=== PATIENT | female | born 1990 | race Caucasian/White ===

== ENCOUNTER 2024-09-23 18:25 | Emergency (ER) | payer MEDICAID, SELFPAY ==
[2024-09-23 18:32] VITALS: BP 184/90; PULSE 91; RESP 18; TEMP 36.6; O2SAT 100; BMI 31.8
--- NOTE | 2024-09-23 18:32 | ED_ITS ---
Discharge Plan Disposition Patient Disposition: Home, Self-Care Condition: Good Prescriptions Prescriptions: New amoxicillin-pot clavulanate 875-125 mg tablet 1 tab PO BID Qty: 20 0RF nygusxgkommrtkx-oithsfrvm-[id number] [Bromfed DM] 2-30-10 mg/5 mL syrup 5 ml PO Q4H PRN (Reason: sinus symptoms) Qty: 118 0RF Referrals Follow up/Referrals: Janis Victor APRN [Nurse Practitioner] - See instructions Provider,Referral, [Primary Care Provider] - See instructions Activity Restrictions/Add. Instructions Additional Instructions/Restrictions: Please take your antibiotic till it is gone. Please call in the morning to make a follow-up appointment with ear nose and throat to follow the progression. Return to ER for any worsening signs or symptoms as needed. Clinical Impressions Clinical Impression: Acute pain of left ear Print Language Print Language: Slovenian Discharge ED Provider: Emiliano Gómez General Adult HPI <VANDA Lindsay - Last Filed: 09/23/24 20:15> General Chief complaint: Upper Respiratory Infection Stated complaint: left ear pain,headache Time Seen by Provider: 09/23/24 18:33 History of Present Illness HPI narrative: Patient states that she started with a sort of left-sided headache that was generalized but has localized now to her left ear. She denies any fever chills hemoptysis hematochezia melena nausea vomiting diarrhea sore throat. She does not report any loss of hearing. Patient presents for evaluation of left ear pain. Patient gives a 2-day history of increasing left ear pain. Related Data Previous Rx's ?Medication ?Instructions ?Recorded amoxicillin 875 mg-potassium 1 tab PO BID #20 tabs 09/23/24 clavulanate 125 mg tablet byeekiqtwcssmba-pcyipfkvklghbau-TV 5 ml PO Q4H PRN sinus symptoms 09/23/24 2 mg-30 mg-10 mg/5 mL oral syrup #118 mL (Bromfed DM) Allergies Allergy/AdvReac Type Severity Reaction Status Date / Time INGREDIENT: NO KNOWN - NO Allergy Unknown Uncoded 08/20/17 14:54 KNOWN DRUG ALLERGY PFSH <VANDA Lindsay - Last Filed: 09/23/24 20:15> [facility] Disclaimer: The information contained in this section may have been updated after the patient was seen, as this information can be updated by other users. Social History (Updated 09/23/24 @ 20:15 by VANDA Lindsay) Smoking Status: Current every day smoker alcohol intake: never current occupational status: employed Travel in the last 8 weeks: None Have you lived/traveled outside [place] in past 30 days?: No Contact w/someone who lives/traveled outside [place] past 30 days?: No Exposure to someone with infectious disease in past 14 days?: No Do you have a fever (greater than 100.4 F or 38 C)?: No Have you tested positive for COVID-19: No Exposed to someone with COVID-19 in past 14 days?: No Do you have a sore throat?: No Do you have a cough?: No Do you have any weakness?: No Do you have any diarrhea?: No Are you experiencing any unusual bleeding?: No Do you have any muscle aches/pain?: No Do you have any abdominal pain?: No Are you experiencing loss of taste or smell?: No <VANDA Lindsay - Last Filed: 09/23/24 20:15> ROS Obtained: Yes Systems reviewed as appropriate & no additional complaints except as documented Physical Exam <VANDA Lindsay - Last Filed: 09/23/24 20:15> General General appearance: alert Respiratory Respiratory exam: Present normal lung sounds bilaterally Cardiovascular Cardiovascular exam: Present regular rate Neurological Exam Neurological exam: Present alert and oriented X3 Medical Decision Making <VANDA Lindsay - Last Filed: 09/23/24 20:15> Medical Records Screening: Per USPSTF and CDC recommendations, given the prevalence of disease in our region, it is our hospital?s policy to screen for HIV and viral Hepatitis for all patients aged 18 and over and those with ongoing risk factors. Lalito Inquiry Pt receiving controlled substance: No Vital Signs: 09/23/24 18:32 09/23/24 20:12 Temperature 97.8 F 97.8 F Temperature Source Oral Oral Pulse Rate 95 H Pulse Rate [Radial] 91 H Respiratory Rate 18 18 Blood Pressure 171/82 H Blood Pressure [Right Arm] 184/90 H Blood Pressure Mean [Right Arm] 121 Blood Pressure Source Automatic Cuff Blood Pressure Source [Right Arm] Automatic Cuff Blood Pressure Position Sitting Blood Pressure Position [Right Arm] Sitting 02 Sat by Pulse Oximetry 100 Oxygen Delivery Method Room Air Room Air Lab Data Lab results reviewed: Yes I reviewed the patient's lab results. Lab Results 09/23/24 18:38: SARS-CoV-2 (PCR) Not detected, Influenza A Untype (PCR) Not detected, Influenza Type B (PCR) Not detected Orders (Tests/Meds): ED MEDICATIONS Discontinued Medications Generic Name Dose Route Start Last Admin Trade Name Marcos PRN Reason Stop Dose Admin Acetaminophen 1,000 mg 09/23/24 19:13 09/23/24 19:34 Acetaminophen 500mg Tab PO 09/23/24 19:14 1,000 mg ONCE ONE Administration Amoxicillin/Clavulanate Potassium 1 each 09/23/24 19:43 09/23/24 20:07 Amoxicillin/Clavulanate Potassium 875/125mg Tablet PO 09/23/24 19:44 1 each ONCE ONE Administration Hydralazine HCl 10 mg 09/23/24 19:14 09/23/24 19:34 Hydralazine 10mg Tablet PO 09/23/24 19:15 10 mg ONCE ONE Administration Methocarbamol 500 mg 09/23/24 19:15 09/23/24 19:34 Methocarbamol 500mg Tablet PO 09/23/24 19:16 500 mg ONCE ONE Administration Ondansetron HCl 4 mg 09/23/24 19:15 09/23/24 19:34 Ondansetron 4mg Odt SL 09/23/24 19:16 4 mg ONCE ONE Administration ORDERS Category Date Time Status Rapid PCR Covid and Flu A/B Stat Lab 09/23/24 18:38 Completed Medical Decision Narrative: In summary patient is a 34-year-old female who presents to the emergency department for evaluation of left ear pain. Patient is initially hypertensive at 184/90 with a heart rate of 91 with normal sinus rhythm on the bedside monitor breathing 18 times a minute satting at 100% room air upon arrival, 97.8. Physical exam is remarkable for a normal oropharynx with no exudate, bilateral tympanic membranes are normal with no erythema or injection. External auditory canals are normal. However behind the left ear patient has redness swelling and is tender to palpation concerning for mastoiditis. Patient has no cervical lymphadenopathy.. Differential diagnosis includes mastoiditis versus regional lymphadenopathy.. Initial workup will be conducted with COVID and flu swabs. Initial interventions include Tylenol ibuprofen Robaxin. Initial workup reviewed by me shows that her COVID and flu swabs are negative. Given the high morbidity for mastoiditis I have gone ahead and initiate the patient on Augmentin with first dose given here. I will also refer her to ear nose and throat for ongoing management and care. Patient given strict return precautions. <Emiliano Gómez MD - Last Filed: 09/24/24 17:37> Vital Signs: 09/23/24 18:32 09/23/24 20:12 Temperature 97.8 F 97.8 F Temperature Source Oral Oral Pulse Rate 95 H Pulse Rate [Radial] 91 H Respiratory Rate 18 18 Blood Pressure 171/82 H Blood Pressure [Right Arm] 184/90 H Blood Pressure Mean [Right Arm] 121 Blood Pressure Source Automatic Cuff Blood Pressure Source [Right Arm] Automatic Cuff Blood Pressure Position Sitting Blood Pressure Position [Right Arm] Sitting 02 Sat by Pulse Oximetry 100 Oxygen Delivery Method Room Air Room Air Lab Data Lab Results 09/23/24 18:38: SARS-CoV-2 (PCR) Not detected, Influenza A Untype (PCR) Not detected, Influenza Type B (PCR) Not detected Orders (Tests/Meds): ED MEDICATIONS Discontinued Medications Generic Name Dose Route Start Last Admin Trade Name Freq PRN Reason Stop Dose Admin Acetaminophen 1,000 mg 09/23/24 19:13 09/23/24 19:34 Acetaminophen 500mg Tab PO 09/23/24 19:14 1,000 mg ONCE ONE Administration Amoxicillin/Clavulanate Potassium 1 each 09/23/24 19:43 09/23/24 20:07 Amoxicillin/Clavulanate Potassium 875/125mg Tablet PO 09/23/24 19:44 1 each ONCE ONE Administration Hydralazine HCl 10 mg 09/23/24 19:14 09/23/24 19:34 Hydralazine 10mg Tablet PO 09/23/24 19:15 10 mg ONCE ONE Administration Methocarbamol 500 mg 09/23/24 19:15 09/23/24 19:34 Methocarbamol 500mg Tablet PO 09/23/24 19:16 500 mg ONCE ONE Administration Ondansetron HCl 4 mg 09/23/24 19:15 09/23/24 19:34 Ondansetron 4mg Odt SL 09/23/24 19:16 4 mg ONCE ONE Administration ORDERS Category Date Time Status Rapid PCR Covid and Flu A/B Stat Lab 09/23/24 18:38 Completed Medical Decision Narrative: In summary patient is a 34-year-old female who presents to the emergency department for evaluation of left ear pain. Patient is initially hypertensive at 184/90 with a heart rate of 91 with normal sinus rhythm on the bedside monitor breathing 18 times a minute satting at 100% room air upon arrival, 97.8. Physical exam is remarkable for a normal oropharynx with no exudate, bilateral tympanic membranes are normal with no erythema or injection. External auditory canals are normal. However behind the left ear patient has redness swelling and is tender to palpation concerning for mastoiditis. Patient has no cervical lymphadenopathy.. Differential diagnosis includes mastoiditis versus regional lymphadenopathy.. Initial workup will be conducted with COVID and flu swabs. Initial interventions include Tylenol ibuprofen Robaxin. Initial workup reviewed by me shows that her COVID and flu swabs are negative. Given the high morbidity for mastoiditis I have gone ahead and initiate the patient on Augmentin with first dose given here. I will also refer her to ear nose and throat for ongoing management and care. Patient given strict return precautions. I independently examined and interviewed patient. Patient has normal otic exam internally and externally. No mastoid tenderness, but she does state that she is tender behind her ear essentially where the ear meets her scalp. Ear is not externally rotated. She has no evidence of meningismus, neurologically intact, no fevers. I think reasonably given patient's ear pain, history of otitis in the past and this feeling similar, but worse with pain posterior to her ear, this is likely early mastoiditis. Because she has no systemic signs or sympto ms, no external findings consistent with mastoiditis, no tenderness of the mastoid bone and no outward signs of abnormality, I feel she is appropriate for outpatient trial of oral antibiotics. First dose given here. Close return precautions were discussed. Patient feels comfortable going home and trialing these and coming back if she needs. Because patient at baseline without signs or symptoms of clinical decompensation, deemed appropriate for discharge. Results were relayed to patient who voiced understanding and were agreeable to outpatient management and follow up. I discussed my clinical impression with patient and answered all questions. At this time, the evidence for any other entities in the differential is insufficient to warrant any further testing or ED observation. This was explained as well. Advisory was given that persistent or worsening symptoms require further evaluation. I confirmed the understanding of this discussion. MD [facility] <VANDA Lindsay - Last Filed: 09/23/24 20:15> Critical Care Time Critical Care Time: No
[2024-09-23 18:44] LABS: Coronavirus 19, PCR Not Detected (NotDetected); Influenza A, PCR Not Detected (NotDetected); Influenza B, PCR Not Detected (NotDetected)
[2024-09-23] MEDS: HYDRALAZINE 10MG TABLET 10 MG PO (19:34)
[2024-09-23] MEDS: ACETAMINOPHEN 500MG TAB 1000 MG PO (19:34)
[2024-09-23] MEDS: ONDANSETRON 4MG ODT 4 MG SL (19:34)
[2024-09-23] MEDS: METHOCARBAMOL 500MG TABLET 500 MG PO (19:34)
[2024-09-23] MEDS: AMOXICILLIN/CLAVULANATE POTASSIUM 875/125MG TABLET 1 EACH PO (20:07)
[2024-09-23 20:12] VITALS: BP 171/82; PULSE 95; RESP 18; TEMP 36.6; O2SAT 98
== END 2024-09-23 20:13 | disposition home or self-care (01) ==
PROVIDERS: Emergency Provider Emergency Medicine
DX: H92.02 Otalgia, left ear (principal); R51.9 Headache, unspecified
CPT/HCPCS: 87636; 99283; Q0162